=== PATIENT | female | born 1985 | race Caucasian/White ===

== ENCOUNTER 2017-02-19 06:46 | Emergency (ER) | payer MEDICAID ==
[~2017-02-19] VITALS: Ht 177.8 cm; Wt 94.7 kg
[2017-02-19 06:49] VITALS: BP_DIAS 84
[2017-02-19] MEDS ORDERED: LITH600C PO (07:17)
[2017-02-19] MEDS ORDERED: LITH300T3 PO (07:17)
[2017-02-19 07:36] LABS: HCG UR LOT HCG7030192
[2017-02-19 07:39] LABS: HCG UR OBC PASS
[2017-02-19 08:59] VITALS: BP_SYST 84
== END 2017-02-19 09:01 | disposition home or self-care (01) ==
LOC: ED 07:38
DX: J98.01 Acute bronchospasm (principal); M94.0 Chondrocostal junction syndrome [Tietze]; F17.210 Nicotine dependence, cigarettes, uncomplicated
CPT/HCPCS: 71020; 81025; 93005; 99285

== ENCOUNTER 2017-04-30 03:36 | Emergency (ER) | payer SELFPAY ==
[~2017-04-30] VITALS: Ht 177.8 cm; Wt 95.3 kg
[~2017-04-30 03:36] MED LIST: LITH300T3 PO; LITH600C PO
[2017-04-30 03:38] VITALS: BP 146/96
== END 2017-04-30 04:37 | disposition left against medical advice (07) ==
LOC: ED 04:31
DX: M54.5 Low back pain (principal); Z53.21 Procedure and treatment not carried out due to patient leaving prior to being seen by health care provider

== ENCOUNTER 2017-04-30 06:11 | Emergency (ER) | payer OTHER ==
[~2017-04-30] VITALS: Ht 177.8 cm; Wt 95.2 kg
[2017-04-30] MEDS ORDERED: ONDANSETRON ODT 4 MG ONE ×2 (06:48→06:50)
[2017-04-30] MEDS ORDERED: ONDANSETRON ODT 4 MG PO ONE (07:00)
[2017-04-30 07:10] LABS: HCG UR SG 1.025 (1.003-1.030)
[2017-04-30 07:12] LABS: MICROSCOPIC INDICATED
[2017-04-30 07:26] LABS: CULTURE INDICATED? YES
[2017-04-30 08:04] VITALS: BP 134/90
== END 2017-04-30 08:18 | disposition home or self-care (01) ==
LOC: ED 07:11
DX: N30.90 Cystitis, unspecified without hematuria (principal); F17.200 Nicotine dependence, unspecified, uncomplicated
CPT/HCPCS: 81001; 81025; 87077; 87086; 99284; Q0162; 87186

== ENCOUNTER 2018-03-23 08:21 | Emergency (ER) | payer OTHER, MEDICAID ==
[~2018-03-23] VITALS: Ht 177.8 cm; Wt 109.0 kg
[2018-03-23 08:24] VITALS: BP 128/89
[2018-03-23] MEDS ORDERED: IBUPROFEN 200 MG TABLET PO ONE (09:00)
[2018-03-23 09:06] LABS: RAPID INFLUENZA A Negative (Negative); RAPID INFLUENZA B Negative (Negative)
[2018-03-23] MEDS ORDERED: IBUPROFEN 200 MG TABLET ONE (09:07)
--- NOTE | 2018-03-23 09:38 | NUR ---
TASK RN: Discharge instructions discussed with patient, verbalizes understanding, prescriptions provided. Patient ambulates with steady gait to discharge desk in no acute distress.
== END 2018-03-23 09:39 | disposition home or self-care (01) ==
LOC: ED 08:58
DX: B34.9 Viral infection, unspecified (principal); F17.200 Nicotine dependence, unspecified, uncomplicated
CPT/HCPCS: 71046; 87400; 99284

== ENCOUNTER 2018-07-25 10:28 | Emergency (ER) | payer MEDICAID, OTHER ==
[~2018-07-25] VITALS: Ht 177.8 cm; Wt 112.0 kg
[2018-07-25 10:31] VITALS: BP 128/89
--- NOTE | 2018-07-25 10:58 | NUR ---
PT TO ROOM FROM [facility] AT BEDSIDE. AWAITING LAB RESULTS
== END 2018-07-25 12:08 | disposition home or self-care (01) ==
LOC: ED 11:50
DX: H66.002 Acute suppurative otitis media without spontaneous rupture of ear drum, left ear (principal); J20.9 Acute bronchitis, unspecified; J00 Acute nasopharyngitis [common cold]; B97.89 Other viral agents as the cause of diseases classified elsewhere; Z87.891 Personal history of nicotine dependence
CPT/HCPCS: 71046; 87081; 87880; 99284